=== PATIENT | male | born 1985 | race Caucasian/White ===

== ENCOUNTER 2025-02-27 19:40 | Emergency (ER) | payer SELFPAY ==
--- NOTE | ~2025-02-27 | XR_ITS ---
EXAMINATION: XR chest 1V portable Exam Date/Time: 02/27/2025 19:50 CDT HISTORY: OD Comparison: None. RESULT: Lines, tubes, and devices: None. Lungs and pleura: Leftward rotation. Ovoid 12 mm opacity in the peripheral right midlung. Diffuse in creased density over the right hemithorax likely due to artifact from rotation. No lobar consolidatio n, pleural effusion, or pneumothorax. Cardiomediastinal silhouette: Unremarkable. Other: No acute osseous or upper abdominal finding. IMPRESSION: Focal nodular opacity in the right peripheral midlung, may represent a small focus of infection/aspir ation or pulmonary nodule. Recommend short-term follow-up to evaluate for resolution. Reviewed, dictated and finalized at [facility]. IMPRESSION: Focal nodular opacity in the right peripheral midlung, may represent a small fo cus of infection/aspiration or pulmonary nodule. Recommend short-term follow-up to evaluate for resolution.
--- NOTE | ~2025-02-27 | XR_ITS ---
EXAM: XR abdomen/kub 1V DATE: 02/27/2025 20:02 HISTORY: Overdose, police suspect packing? . COMPARISON: None available. FINDINGS: Clear lung bases. Large volume of colonic feces, otherwise normal bowel gas pattern. No or ganomegaly. No abnormal abdominal calcification. Regional bones and soft tissues normal for age. IMPRESSION: No radiographic evidence of obstruction or ileus. Possible constipation. Reviewed, dictated and finalized at location K. IMPRESSION: No radiographic evidence of obstruction or ileus. Possible constipa tion.
[2025-02-27 19:39] VITALS: BP 118/84; PULSE 110; RESP 8; TEMP 36.6; O2SAT 90
--- NOTE | 2025-02-27 19:49 | ECG_ITS ---
Test Date: 2025-02-27 19:40:43 Measurements Intervals [place] Rate: 108 P: 75 [place]: 108 QRS: 59 QRSD: 89 T: 45 QT: 339 QTc: 456 Interpretive Statements SINUS TACHYCARDIA WITH SHORT [place] INTERVAL BASELINE ARTIFACT- II, III, AVR, AVL, AVF ABNORMAL ECG No previous ECG available for comparison Electronically Signed On 02-28-2025 06:15:13 CDT by Leonard Camacho D.O.
[2025-02-27 20:01] VITALS: O2SAT 100
--- NOTE | 2025-02-27 20:08 | ED_ITS ---
HPI - Overdose General Chief Complaint: Overdose Stated Complaint: FENTANYL OD Time Seen by Provider: 02/27/25 19:43 History of Present Illness HPI Narrative: 39-year-old male with a past medical history including polysubstance abuse with methamphetamine and fentanyl. Patient states he used meth earlier this morning and then took a tablet of fentanyl tonight. Patient states he took a normal amount of fentanyl for him but he was found unresponsive and a local establishment dressing room. Patient awoke with stimuli and was not given any Narcan. He was hypopneic and had an elevated capnography. He was placed on nasal cannula and transported. Patient and only denies wanting any Narcan is he states that he feels fine. Patient denies any trouble breathing, nausea, vomiting, abdominal pain, back pain. EMS was concerned that they found pills in the restroom at the same establishment and thought that he may have been smoking them possibly per rectum. Patient had only denies this. Patient states he was trying to flush them. Patient has no complaints at this time but is placed on nasal cannula and has low respiratory drive. He is awake and answering questions appropriately. Related Data Allergies Allergy/AdvReac Type Severity Reaction Status Date / Time No Known Allergies Allergy Mild Unverified 06/12/18 17:27 Review of Systems 2 Review of Systems: As reviewed above in HPI Exam 2 Narrative: GENERAL: [Well-appearing, well-nourished, and in no acute distress.] HEAD: [Normocephalic, atraumatic.] EYES: [PERRLA and EOMI.] ENT: Nares clear, no rhinorrhea or epistaxis. Mucous membranes moist. NECK: Supple. CHEST: [Clear to auscultation. No respiratory distress.] Low respiratory drive, no respiratory distress HEART: [Regular rate and rhythm]. No murmur heard. [Normal peripheral pulses.] ABDOMEN: [Soft, nondistended], [nontender], [No rigidity or guarding] EXTREMITIES: Normal range of motion. [No edema.] SKIN: Warm, dry, no rash. NEURO: [No focal deficits]. Alert and oriented [x3.] PSYCH: [Normal mood and affect.] Course Vital Signs Vital signs: Vital Signs Temperature 36.6 C 02/27/25 19:39 Pulse Rate 110 H 02/27/25 19:39 Respiratory Rate 8 L 02/27/25 19:39 Blood Pressure 118/84 02/27/25 19:39 Pulse Oximetry 90 02/27/25 19:39 Oxygen Delivery Room Air 02/27/25 19:39 Temperature 36.6 C 02/27/25 19:39 Pulse Rate 69 02/28/25 01:49 Respiratory Rate 10 L 02/28/25 01:49 Blood Pressure 105/76 02/28/25 01:49 Pulse Oximetry 94 02/28/25 01:49 Oxygen Delivery Room Air 02/27/25 21:56 Oxygen Flow Rate 2 02/27/25 20:01 MDM - Overdose MDM Narrative Medical decision making narrative: 39-year-old male with history of polysubstance abuse including methamphetamine and fentanyl. He potentially had a fentanyl overdose today at a public establishment. Found unconscious and was responsive to minimal stimuli. Patient was breathing slowly and had elevated capnography for EMS. He was placed on nasal cannula. Pills were found in the restroom where he was located and please for concerned that he may have been smoke going them but patient denies this. Patient has no complaints at this time and does not want any Narcan. He did not get any Narcan by EMS or police. He is not in any acute distress, is on nasal cannula presently, no fever, blood pressure concerns, slightly tachycardic. He is awake and answering all my questions appropriately, breathing comfortably on the oxygen. Suspicion presently is for an opiate overdose versus other respiratory depressants such as alcohol or benzodiazepines although he denies these. He has normal-sized pupils and a normal neurological assessment with clear breath sounds. Workup was ordered including toxicological screenings, basic laboratory studies, chest x-ray and KUB for possible packing. Patient was placed on control supervisor and pulse oximetry and doing well without any interventions. Breathing comfortably and awake and answering questions. Patient's laboratory studies showed no leukocytosis or significant anemia. Normal platelet count. Electrolytes are unremarkable. Normal creatinine, normal glucose, normal LFTs. Negative salicylates Tylenol alcohol level. Chest x-ray shows nodular opacity in the right perihilar lung likely an aspirate but he has no infectious symptoms. Saturating well on room air at this time. No indications for antibiotics is he is afebrile, saturating on room air, and not in any respiratory distress. KUB shows no evidence of obstruction, ileus or retained foreign body. EKG shows sinus tachycardia, no ST segment changes. No interval anomalies. Patient was stable here in the emergency department with normal vital signs on repeat assessments. Maintaining well on room air, breathing comfortably at 12- 15 times per minute and was observed here for over 6 hours. Patient is answering all questions appropriately, stable for discharge home at this time. Encouraged to stop using fentanyl and other drugs and provided resources. Patient tells me he has Narcan at home as needed. Medical Records Attestation: I reviewed the patient's medical records. Lab Data Attestation: I reviewed the patient's lab results. 02/27/25 20:03 02/27/25 20:03 Labs: Lab Results 02/27/25 Range/Units 20:03 WBC 5.0 (4.5-10.0) K/mm3 RBC 4.02 L (4.6-6.20) M/mm3 Hgb 12.1 L (14.0-18.0) g/dL Hct 38.6 L (42.0-52.0) % MCV 96.0 (80-100) fl MCH 30.1 (26-34) pg MCHC 31.3 L (32-36) g/dl RDW 13.1 (11.5-14.5) % Plt Count 201 (150-375) k/mm3 MPV 10.3 (7.4-10.4) fl Immature Gran % (Auto) 0.0 (0-0.5) % Neut % (Auto) 46.3 (45.5-73.1) % Lymph % (Auto) 31.2 (18.3-44.2) % [place] % (Auto) 13.9 H (2.6-8.5) % Eos % (Auto) 7.6 H (0-4.4) % Baso % (Auto) 1.0 (0.2-1.2) % Lymph # (Auto) 1.57 (0.9-3.2) K/mm3 [place] # (Auto) 0.7 H (0.1-0.6) K/mm3 Eos # (Auto) 0.4 H (0-0.3) K/mm3 Baso # (Auto) 0.1 (0.0-0.1) K/mm3 Abs Immat Gran (auto) 0.00 (0.00-0.031) K/mm3 Absolute Neuts (auto) 2.3 (1.3-6.7) K/mm3 Absolute Nucleated RBC 0.000 (0.0-0.012) K/mm3 Nucleated RBC % 0.0 (0.0-0.2) % Sodium 142 (137-145) mmol/L Potassium 4.8 (3.4-5.0) mmol/L Chloride 100 (98-107) mmol/L Carbon Dioxide 34 H (22-30) mmol/L Anion Gap 8 (4-12) mmol/L BUN 17 (9-20) mg/dL Creatinine 1.15 (0.7-1.3) mg/dL Estim Creat Clear Calc Not Reportable Estimated GFR > 60 (59 - ) Glucose 80 (65-110) mg/dL Calcium 8.5 (8.4-10.2) mg/dL Total Bilirubin 0.9 (0.2-1.3) mg/dL AST 60 H (17-59) U/L ALT 58 H (6-50) U/L Alkaline Phosphatase 67 (38-126) U/L Total Protein 8.0 (6.3-8.2) g/dL Albumin 4.2 (3.5-5.1) g/dL Salicylates < 1.0 L (2-20) mg/dL Acetaminophen < 10 L (10-30) ug/mL Ethyl Alcohol < 10 (<10) mg/dL Imaging Data Attestation: I personally reviewed and interpreted this imaging study as follows: My impression: Impressions Chest X-Ray 02/27/25 20:19 IMPRESSION: Focal nodular opacity in the right peripheral midlung, may represent a small focus of infection/aspiration or pulmonary nodule. Recommend short-term follow- up to evaluate for resolution. Abdomen X-Ray 02/27/25 20:22 IMPRESSION: No radiographic evidence of obstruction or ileus. Possible constipation. Discharge Plan Discharge Clinical Impression: Drug overdose, Abnormal chest x-ray Patient Disposition: Home, Self-Care Condition: Stable Instructions: Antibiotic Form Additional Instructions: Refrain from any substance use such as methamphetamine of fentanyl. Will provide resources if you wish to seek help regarding your substance use. Follow-up with your doctors. Return with any emergent concerns. Your chest x- ray shows signs of potential aspiration from her overdose. No need to treat this right now but if you start developing any fevers, shortness of breath, chest pain or any other symptoms follow-up with a doctor or return to the emergency department. Patient Language: Belizean Follow-up/Referrals: PHYSICIAN,[facility] [Primary Care Provider] - Time of Disposition: 02:25
--- OUTSIDE RECORDS SUMMARY | 2025-02-27 20:08 | XMS_ITS | CONTINUITY OF CARE DOCUMENT ---
Author Name lionel flowers Address Unknown Organization [facility] Address [address] [place] [address] Phone [phone] Care Team Providers Care Herb Counselor Name Role Phone Francis Ventura MD Unavailable [phone] Francis Ventura MD Unavailable [phone] INSURANCE PROVIDERS Payer name Policy type / Coverage type [employer]el[employer] party ID [place] MEDICA[employer] Medicaid [id number]
--- OUTSIDE RECORDS SUMMARY | 2025-02-27 20:08 | XMS_ITS | Clinical Summary ---
Author Organization [facility] Address [address] [place] [id number] Care Team Providers Care Patient Escort Name Role Phone Unavailable Primary Care Provider Unavailabl e Social History Tobacco Use Types Packs/Day Years Used Date Smoking Tobacco: Never Assessed Sex and Gender Information Value Date Recorded Sex Assigned at Not on file Legal Sex Male 6:42 PM CDT Gender Identity Not on file Sexual Orientation Not on file Plan of Treatment Health Maintenance Due Date Last Done Comments Annual Physical 1989 Hepatitis C 2004 DTaP, Tdap and Td Vaccines ( 1 - Tdap) 2005 Hepatitis B Vaccines (1 of 3 - 19+ 3-dose series) 2005 COVID-19 Vaccine (2023-2 5 season) 2024 Influenza Adult (#1) 2024 HPV Vaccines Aged Out No longer eligi ble based on patient's age to complete this topic Meningococcal B Vaccine Aged Out No l onger eligible based on patient's age to complete this topic Meningococcal Vaccine Aged Out No nick tre eligible based on patient's age to complete this topic Pneumococcal Vaccine: Pediat rics (0 to 5 Years) and At-Risk Patients (6 to 64 Years) Aged Out No longer eligible b ased on patient's age to complete this topic RSV Immunizations Under 20 Months Aged Out No longer eligible based on patient's age to complete this topic
--- OUTSIDE RECORDS SUMMARY | 2025-02-27 20:08 | XMS_ITS | Clinical Summary ---
Author Organization [facility] Address [address] [place] [address] Care Team Providers Care Staff Respiratory Therapist Name Role Phone Unavailable Primary Care Provider Unavailabl e Source Comments [facility],non-owned Affiliates and Associated Physician Practices is amultiple site organization consisting of ambulatory clinics and hospital sitesin [place], [place], [place] and [place]. This disclosure is being madepursuant to the Care Everywhere program and may not contain all information available regarding this patient. Last updated 18.[facility] Allergies No known active allergies Medications Be aware that medications may not be up to date on this document. Always verify current medications with the patient. No known medications Social History Tobacco Use Types Packs/Day Years Used Date Smoking Tobacco: Former Smokeless Tobacco: Never Alcohol Use Standard Drinks/Week Comments Never 0 (1 standard drink = 0.6 oz pur e alcohol) AUDIT-C Answer Date Recorded Q1: How often do you have a drink containing alc ohol? Never 11/21/2020 Average Number of Drinks Not on file 020 Frequency of Binge Drinking Not on file 10/28 Sex and Gender Information Value Date Recorded Sex Assigned at Not on file Gender Identity Not on file Sexual Orientation Not on file Last Filed Vital Signs Vital Sign Reading Time Taken Comments Blood Pressure 124/90 11/21/2020 12:06 AM [facility]TER Pulse 101 11/21/2020 1:05 AM [facility] Temperature 36.6 C (97.8 F) 11/20/2020 11:17 PM [facility]TER Respiratory Rate 12 11/21/2020 1:05 AM [facility]TER Oxygen Saturation 96% 11/21/2020 1:05 AM [facility]TER Inhaled Oxygen Concentration - - Weight 76.2 kg (168 lb) 11/20/2020 11:17 PM [facility] Height 185.4 cm (6' 1 ) 11/20/2020 11:17 PM [facility] Body Mass Index 22.16 11/20/2020 11:17 PM [facility]TER Plan of Treatment Health Maintenance Due Date Last Done Comments HIV SCREENING 2001 HEPATITIS C SCREENING 07/14/2004 DTAP/TDAP/TD VACCINES (1 - Tdap) 2005 HEPATITIS B VACCINE (1 of 3 - 19+ 3-dose series) 2005 COVID-19 VACCINE (1 - 2023-2 5 season) 2024 INFLUENZA VACCINE (#1) 2024 DEPRESSION SCREENING 11/27/2024 ZOSTER VACCINE (1 of 2) 2036 HIB VACCINE Aged Out No longer eligi ble based on patient's age to complete this topic HPV VACCINE Aged Out No longer eligi ble based on patient's age to complete this topic MENINGOCOCCAL (Group B) VACC INE SHARED DECISION-MAKING Aged Out No longer eligibl e based on patient's age to complete this topic MENINGOCOCCAL GROUPS A/C/Y/W VACCINE Aged Out No longer eligible b ased on patient's age to complete this topic PNEUMOCOCCAL VACCINE Aged Out No long er eligible based on patient's age to complete this topic
[2025-02-27 20:09] LABS: Basophils Absolute Auto 0.1 K/mm3 (0.0-0.1); Eosinophils Absolute Auto 0.4 K/mm3 (0-0.3); Eosinophils Percent Auto 7.6 % (0-4.4); Hematocrit 38.6 % (42.0-52.0); Hemoglobin 12.1 g/dL (14.0-18.0); Lymphocytes Absolute Auto 1.57 K/mm3 (0.9-3.2); Lymphocytes Percent Auto 31.2 % (18.3-44.2); Mean Corpuscular HGB Conc 31.3 g/dl (32-36); Mean Corpuscular Hemoglobin 30.1 pg (26-34); Mean Platelet Volume 10.3 fl (7.4-10.4); Monocytes Absolute Auto 0.7 K/mm3 (0.1-0.6); Monocytes Percent Auto 13.9 % (2.6-8.5); Neutrophils Absolute Auto 2.3 K/mm3 (1.3-6.7); Neutrophils Percent Auto 46.3 % (45.5-73.1); Platelet Count Result 201 k/mm3 (150-375); Red Blood Count 4.02 M/mm3 (4.6-6.20); Red Cell Distribution Width 13.1 % (11.5-14.5)
[2025-02-27 20:20] LABS: Acetaminophen < 10 ug/mL (10-30); Alanine Aminotransferase 58 U/L (6-50); Albumin Level 4.2 g/dL (3.5-5.1); Alkaline Phosphatase 67 U/L (38-126); Anion Gap 8 mmol/L (4-12); Aspartate Amino Transferase 60 U/L (17-59); Bilirubin,Total 0.9 mg/dL (0.2-1.3); Blood Urea Nitrogen 17 mg/dL (9-20); Calcium 8.5 mg/dL (8.4-10.2); Carbon Dioxide 34 mmol/L (22-30); Chloride 100 mmol/L (98-107); Estimated Glomerular Filt Rate > 60; Ethanol < 10 mg/dL (<10); Glucose 80 mg/dL (65-110); Potassium 4.8 mmol/L (3.4-5.0); Salicylate < 1.0 mg/dL (2-20); Sodium 142 mmol/L (137-145)
[2025-02-27 20:37] VITALS: BP 114/85; PULSE 91; RESP 14; O2SAT 100
--- NOTE | 2025-02-27 21:04 | PC.NURSE ---
Per MD Dumont to have 0.4 mg of Narcan on stand by due to pt overdose. Pt is begging we do not narcan him. Per as long as pt is able to breathe respirations above 10 and remains stable and A&Ox4 we will hold Narcan as needed.
[2025-02-27 21:56] VITALS: O2SAT 98
[2025-02-27 21:57] VITALS: BP 105/74; PULSE 83; RESP 13; O2SAT 96
[2025-02-27 23:13] VITALS: BP 108/71; PULSE 80; RESP 10; O2SAT 94
[2025-02-28 00:47] VITALS: BP 105/77; PULSE 73; RESP 11; O2SAT 92
[2025-02-28 01:49] VITALS: BP 105/76; PULSE 69; RESP 10; O2SAT 94
== END 2025-02-28 03:11 | disposition home or self-care (01) ==
PROVIDERS: Emergency Provider Student in an Organized Health Care Education/Training Program
DX: T40.411A Poisoning by fentanyl or fentanyl analogs, accidental (unintentional), initial encounter (principal); R91.8 Other nonspecific abnormal finding of lung field
CPT/HCPCS: 36415; 71045; 74018; 80053; 80143; 80179; 82077; 85025; 93005; 99284